=== PATIENT | male | born 1980 | race American Indian/Alaskan Native ===

== ENCOUNTER 2018-10-13 18:37 | Emergency (ER) | payer SELFPAY ==
[2018-10-13 18:41] VITALS: BP 143/92
--- NOTE | 2018-10-13 19:07 | Emergency Department Report ---
ED Medical Clearance HPI - General Chief complaint: Medical Clearance Stated complaint: HEADACHE Time Seen by Provider: 10/13/18 18:57 Source: patient Mode of arrival: Ambulatory - History of Present Illness Initial comments: 38 yo AA male here for wellness check. He needs hospital papers with his name on for social security card. Complaint: medical clearance request Allergies/Adverse reactions: Allergies Allergy/AdvReac Type Severity Reaction Status Date / Time No Known Allergies Allergy Unverified 10/13/18 18:39 ED Review of Systems ROS: Stated complaint: HEADACHE Other details as noted in HPI Comment: no complaints ED Past Medical Hx - Past Medical History Previous Medical History?: No - Surgical History Past Surgical History?: No - Social History Smoking Status: Current Every Day Smoker ED Physical Exam - General Limitations: No Limitations General appearance: alert - Head Head exam: Present: atraumatic - Eye Eye exam: Present: normal appearance Pupils: Present: normal accommodation - ENT ENT exam: Present: mucous membranes moist - Neck Neck exam: Present: normal inspection - Respiratory Respiratory exam: Present: normal lung sounds bilaterally - Cardiovascular Cardiovascular Exam: Present: regular rate - GI/Abdominal GI/Abdominal exam: Present: soft, normal bowel sounds ED Course Vital Signs 10/13/18 18:39 Temperature 97.7 F Pulse Rate 86 Respiratory 18 Rate Blood Pressure 143/92 O2 Sat by Pulse 100 Oximetry ED Disposition Clinical Impression: Wellness examination Disposition: TO HOME OR SELFCARE Is pt being admited?: No Does the pt Need Aspirin: No Condition: Stable Referrals: GENESIS BOYER MD [Staff Physician] - 3-5 Days Time of Disposition: 19:06
== END 2018-10-13 19:12 | disposition home or self-care (01) ==
LOC: ED 18:37
DX: Z00.00 Encounter for general adult medical examination without abnormal findings (principal); R51 Headache; F17.200 Nicotine dependence, unspecified, uncomplicated
CPT/HCPCS: 99282